=== PATIENT | male | born 1965 | race Caucasian/White ===

== ENCOUNTER 2019-01-16 06:23 | Emergency (ER) | payer MEDICAID ==
[~2019-01-16] VITALS: Ht 175.3 cm; Wt 97.5 kg
[2019-01-16 06:28] VITALS: BP_SYST 152
--- NOTE | 2019-01-16 06:30 | NUR ---
Patient to ER bed 8 for evaluation. Side rails up.
--- NOTE | 2019-01-16 06:35 | NUR ---
Pt C/O RT great toe pain since yesterday. Pt denies any trauma to the area, has ROM to the affected toe, no swelling or deformity noted. States took Aleve with no relief. Pain increases while weight bearing. Will contine to monitor.
[2019-01-16] MEDS ORDERED: IBUPROFEN 800 MG TABLET PO ONE ×2 (06:45→07:45)
--- NOTE | 2019-01-16 06:52 | NUR ---
Radiology at bedside for xray.
--- NOTE | 2019-01-16 07:08 | NUR ---
Report given to Suri Lee for continuation of care.
--- NOTE | 2019-01-16 07:10 | NUR ---
Patient awake, alert, and sitting-up in [facility].
[2019-01-16 08:35] VITALS: BP_SYST 163
--- NOTE | 2019-01-16 18:35 | NUR ---
Patient given written and verbal discharge instructions and verbalizes understanding. ER MD discussed with patient the results and treatment provided. Patient in stable condition. ID arm band removed. Rx of Triamterene, Allopurinol, Naprosyn given. Patient educated on pain management and to follow up with PMD. Pain Scale 4/10 tolerable for patient . Opportunity for questions provided and answered. Medication side effect fact sheet provided.
== END 2019-01-16 18:35 | disposition home or self-care (01) ==
LOC: SED 06:23
DX: M10.071 Idiopathic gout, right ankle and foot (principal)
CPT/HCPCS: 36415; 73660; 84550; 99284; J7030

== ENCOUNTER 2019-02-16 10:41 | Emergency (ER) | payer MEDICAID ==
[~2019-02-16] VITALS: Ht 175.3 cm; Wt 97.1 kg
[2019-02-16 10:46] VITALS: BP_SYST 150
[2019-02-16 11:43] VITALS: BP_SYST 150
== END 2019-02-16 11:43 | disposition home or self-care (01) ==
LOC: SED 10:41
DX: K64.4 Residual hemorrhoidal skin tags (principal); I10 Essential (primary) hypertension
CPT/HCPCS: 99281; 99282